=== PATIENT | female | born 1990 | race African-American/Black ===

== ENCOUNTER 2017-04-05 09:39 | Emergency (ER) | payer OTHER ==
[~2017-04-05] VITALS: Ht 149.9 cm; Wt 56.7 kg
[~2017-04-05 09:39] MED LIST: PREDNISONE 10 M10 M1; TRINATE TABLET1 TAB PO; VENTOLIN HFA 1818 GM INH; ZPAK PO
[2017-04-05 09:40] VITALS: BP 115/60
[2017-04-05] MEDS ORDERED: MOBIC15 MG PO (10:43)
[2017-04-05] MEDS ORDERED: MEDROLDOSEPACK PO (10:43)
== END 2017-04-05 10:52 | disposition home or self-care (01) ==
LOC: ER 09:39
DX: M25.511 Pain in right shoulder (principal)

== ENCOUNTER 2017-08-11 08:12 | Emergency (ER) | payer OTHER ==
[~2017-08-11] VITALS: Ht 147.3 cm; Wt 55.8 kg
[~2017-08-11 08:12] MED LIST changes: +MEDROLDOSEPACK PO; +MOBIC15 MG PO
[2017-08-11] MEDS ORDERED: OSELB75 PO (08:57)
== END 2017-08-11 09:12 | disposition home or self-care (01) ==
LOC: ER 08:12
DX: J11.1 Influenza due to unidentified influenza virus with other respiratory manifestations (principal)

== ENCOUNTER 2018-05-09 13:48 | Emergency (ER) | payer OTHER ==
[~2018-05-09] VITALS: Ht 149.9 cm; Wt 56.7 kg
[~2018-05-09 13:48] MED LIST changes: +OSELB75 PO
[2018-05-09] MEDS ORDERED: ZANTAC 150MG T150 MG PO (14:58)
[2018-05-09] MEDS ORDERED: MEDROLDOSEPACK PO (14:58)
[2018-05-09] MEDS ORDERED: ZYRTEC10 M2 PO (14:58)
[2018-05-09 15:46] VITALS: BP 111/61
== END 2018-05-09 15:48 | disposition home or self-care (01) ==
LOC: ER 13:48
DX: L50.9 Urticaria, unspecified (principal)

== ENCOUNTER 2019-08-06 07:13 | Emergency (ER) | payer OTHER ==
[~2019-08-06] VITALS: Ht 147.3 cm; Wt 54.0 kg
[~2019-08-06 07:13] MED LIST changes: +ZANTAC 150MG T150 MG PO; +ZYRTEC10 M2 PO
[2019-08-06] MEDS ORDERED: ZOFRAN ODT4 MG PO (09:17)
[2019-08-06] MEDS ORDERED: GUAIFEN-CODEINE10 ML PO (09:18)
[2019-08-06 09:49] VITALS: BP 105/74
--- NOTE | 2019-08-08 12:34 | EKG ---
[facility] [place] [address] ELECTROCARDIOGRAM REPORT Name: COLLINS DODSON Room #: DEP [facility]#: [id number] Admission: 08/06/19 Attend Phys: Discharge: 08/06/19 Date of : [birth year] Report #: [id number] THIS REPORT FOR: cc: [facility] - Clinic physician unknown [facility] - Clinic physician unknown Osmel Greenfield MD [facility] ~ THIS REPORT FOR: //name// [facility] ED Test Date: 2019-08-06 Test Time: 07:17:56 Pat Name: COLLINS DODSON Department: Room: Gender: Merchandise Handler: [facility] : 1990 Requested By: Veda Vora Order Number: [id number] MD: Osmel Greenfield Measurements Intervals [place] Rate: 88 P: 63 FL: 137 QRS: 17 QRSD: 90 T: 29 QT: 366 QTc: 443 Interpretive Statements Sinus rhythm Normal tracing No previous ECG available for comparison Electronically Signed On 08-06-2019 9:41:31 [employer] FIN[employer] PROFESSOR by Osmel Greenfield [email or web address] <ELECTRONICALLY SIGNED> By: Osmel Greenfield MD, [facility] 08/06/19 0941 [id number] 6 Osmel Greenfield MD, FACC /EPI
== END 2019-08-06 09:49 | disposition home or self-care (01) ==
LOC: ER 07:13
DX: J06.9 Acute upper respiratory infection, unspecified (principal); F17.210 Nicotine dependence, cigarettes, uncomplicated

== ENCOUNTER 2019-10-16 10:26 | Emergency (ER) | payer OTHER ==
[~2019-10-16] VITALS: Ht 149.9 cm; Wt 56.7 kg
[~2019-10-16 10:26] MED LIST changes: +GUAIFEN-CODEINE10 ML PO; +ZOFRAN ODT4 MG PO
[2019-10-16 11:09] LABS: BASOPHILS 0.5 % (0.0-2.0); EOSINOPHILS 0.1 % (0.0-3.0); HEMATOCRIT 47.7 % (37.0-47.0); LYMPHOCYTES 11.8 % (24.0-44.0); MCH 29.4 pg (26.0-34.0); MCHC 33.6 g/dL (28.0-37.0); MCV 87.6 fL (80.0-100.0); MONOCYTES 5.9 % (1.0-8.0); PLATELET COUNT 254 thou/uL (150-400); POLYS 81.7 % (36.0-66.0); RBC 5.44 mil/uL (4.20-5.00); RDW 14.6 % (10.5-14.5); WBC 11.1 thou/uL (4.0-11.0)
[2019-10-16 11:16] LABS: CALCIUM 8.8 mg/dL (8.5-10.1); CREATININE 0.7 mg/dL (0.6-1.0); POTASSIUM 3.5 mmol/L (3.5-5.1)
[2019-10-16 11:21] LABS: TOTAL BILIRUBIN 0.8 mg/dL (<0.1-1.0); TOTAL PROTEIN 7.8 g/dL (6.4-8.2)
[2019-10-16] MEDS ORDERED: ZOFRAN ODT4 MG PO (12:01)
[2019-10-16 12:10] VITALS: BP 108/61
== END 2019-10-16 12:11 | disposition home or self-care (01) ==
LOC: ER 10:26
PROVIDERS: Emergency Medicine
DX: R11.2 Nausea with vomiting, unspecified (principal); R19.7 Diarrhea, unspecified; R42 Dizziness and giddiness; R63.0 Anorexia; R21 Rash and other nonspecific skin eruption

== ENCOUNTER 2020-05-15 03:37 | Emergency (ER) | payer OTHER ==
[~2020-05-15] VITALS: Ht 149.9 cm; Wt 59.0 kg
[2020-05-15 04:53] LABS: HEMATOCRIT 40.7 % (37.0-47.0); HEMOGLOBIN 13.5 gm/dL (12.0-15.0); MCH 30.6 pg (26.0-34.0); MCHC 33.3 g/dL (28.0-37.0); MCV 92.2 fL (80.0-100.0); PLATELET COUNT 237 thou/uL (150-400); RBC 4.42 mil/uL (4.20-5.00); RDW 12.7 % (10.5-14.5); WBC 3.3 thou/uL (4.0-11.0)
[2020-05-15 05:03] LABS: ANION GAP 11 mmol/L (7-16); BUN 7 mg/dL (7-18); CALCIUM 8.9 mg/dL (8.5-10.1); CHLORIDE 102 mmol/L (98-107); CO2 27 mmol/L (21-32); CREATININE 0.8 mg/dL (0.6-1.0); GLUCOSE 100 mg/dL (74-106); POTASSIUM 3.2 mmol/L (3.5-5.1); SODIUM 140 mmol/L (136-145)
[2020-05-15 05:13] LABS: ALBUMIN 3.6 g/dL (3.4-5.0); DIRECT BILIRUBIN < 0.1 mg/dL (<0.1-0.2); SGOT 11 U/L (15-37); SGPT 9 U/L (30-65); TOTAL BILIRUBIN 0.4 mg/dL (0.2-1.0); TOTAL PROTEIN 7.4 g/dL (6.4-8.2); TROPONIN-I <0.06 ng/mL (<0.06)
[2020-05-15] MEDS ORDERED: MOBIC15 MG PO (05:54)
[2020-05-15] MEDS ORDERED: ZOFRAN ODT4 MG PO (05:54)
[2020-05-15 05:59] VITALS: BP 104/59
[2020-05-15 06:29] LABS: PLATELET ESTIMATE NORMAL
--- NOTE | 2020-05-15 07:29 | EKG ---
[facility] [place] [address] ELECTROCARDIOGRAM REPORT Name: IVORYDONNACHRISTINE Room #: [place] [facility] [id number] Admission: 05/15/20 Attend Phys: Discharge: Date of : [birth year] Report #: [id number] THIS REPORT FOR: cc: [facility] - Clinic physician unknown [facility] - Clinic physician unknown Trent Beebe MD [facility] ~ THIS REPORT FOR: //name// [facility] ED Test Date: 2020-05-15 Test Time: 04:53:38 Pat Name: COLLINS DODSON Department: Room: Gender: F Security Intern: SATNAM : 1990 Requested By: Veda Vora Order Number: [id number] MD: Trent Beebe Measurements Intervals [place] Rate: 56 P: 30 DC: 149 QRS: 21 QRSD: 94 T: 30 QT: 404 QTc: 390 Interpretive Statements Sinus rhythm Compared to ECG 08/06/2019 07:17:56 No significant changes Electronically Signed On 05-15-2020 7:28:49 [employer]ORK INSULATOR HELPER by Trent Beebe [email or web address] <ELECTRONICALLY SIGNED> By: Trent Beebe MD, FACC 05/15/20 0728 [id number] 2 Trent Beebe MD, FACC /EPI
== END 2020-05-15 06:15 | disposition home or self-care (01) ==
LOC: ER 03:37
PROVIDERS: Emergency Medicine
DX: U07.1 COVID-19 (principal); R19.7 Diarrhea, unspecified; E87.6 Hypokalemia